=== PATIENT | female | born 1955 | race American Indian/Alaskan Native ===

== ENCOUNTER 2017-04-18 16:12 | Outpatient (CLI) | payer OTHER ==
--- NOTE | 2017-04-19 09:52 | Magnetic Resonance Report ---
MRI of the cervical spine. History: Cervical radiculopathy. Procedure: Sagittal T1-weighted, T2-weighted, inversion recovery images, and axial T2-weighted images were used in the study. Findings: The cervical medullary junction is normal. The cerebellar tonsils are in normal location. The C2-3 and C3-4 levels are unremarkable. At C4-5, there is mild uncovertebral joint hypertrophy with mild foraminal stenosis, greater on the right. At C5-6, there is a central osteophyte/disc complex with mild effacement of the anterior subarachnoid space. There is bilateral uncovertebral joint hypertrophy with mild foraminal stenosis. There is no cord involvement. At C6-7, there is minimal central posterior osteophyte/disc complex with no significant effacement of the subarachnoid space. The C7-T1 level is unremarkable. No additional significant bony findings are seen. Impression: Multilevel mild spondylosis with 2 level facet joint arthropathy and mild foraminal stenosis as described above. No evidence of cord compression or edema.
== END 2017-04-18 16:13 | disposition home or self-care (01) ==
LOC: MRI 16:12
PROVIDERS: ATTEND Family Medicine Adult Medicine
DX: M48.02 Spinal stenosis, cervical region (principal); M47.12 Other spondylosis with myelopathy, cervical region; M54.12 Radiculopathy, cervical region; M12.88 Other specific arthropathies, not elsewhere classified, other specified site; M25.78 Osteophyte, vertebrae
CPT/HCPCS: 72141